=== PATIENT | male | born 2000 | race Caucasian/White ===

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

== ENCOUNTER 2023-01-17 08:00 | Outpatient (CLI) | payer BC, OTHER ==
--- NOTE | 2023-01-17 16:10 | XRAY Report ---
PROCEDURE: Chest 2 View X-Ray INDICATIONS: COUGH TECHNIQUE: 2 views of the chest were acquired. COMPARISON: None. FINDINGS: Surgical changes and devices: None. Lungs and pleura: No pleural effusions or pneumothorax. Lungs are clear. Mediastinum: Mediastinal contours appear normal. Heart size is normal. Bones and chest wall: No suspicious bony lesions. Overlying soft tissues appear unremarkable. IMPRESSION: No acute cardiopulmonary process. Reviewed by: Yosi Jarquin MD on 01/17/2023 4:08 PM [facility] Approved by: Yosi Jarquin MD on 01/17/2023 4:08 PM [facility] Station ID: [id number]
== END 2023-01-17 23:59 | disposition home or self-care (01) ==
LOC: DI.S 08:00
PROVIDERS: ATTEND Physician Assistant Medical
DX: R05.9 Cough, unspecified (principal); R06.02 Shortness of breath; R05.8 Other specified cough